=== PATIENT | female | born 1990 | race Caucasian/White ===

== ENCOUNTER 2018-09-07 02:30 | Emergency (ER) | payer OTHER ==
[2018-09-07] MEDS: IBUPROFEN 600 MG TAB PO (03:18)
== END 2018-09-07 03:23 | disposition home or self-care (01) ==
LOC: FTE 02:30
DX: S46.911A Strain of unspecified muscle, fascia and tendon at shoulder and upper arm level, right arm, initial encounter (principal); S80.01XA Contusion of right knee, initial encounter; S80.02XA Contusion of left knee, initial encounter; W18.30XA Fall on same level, unspecified, initial encounter; Y92.89 Other specified places as the place of occurrence of the external cause
CPT/HCPCS: 99282